=== PATIENT | female | born 1945 | race Asian ===

== ENCOUNTER 2017-09-06 18:36 | Emergency (ER) | payer MEDICARE ==
[~2017-09-06] VITALS: Ht 154.9 cm; Wt 48.1 kg
[2017-09-06 18:38] VITALS: BP 214/92
[2017-09-06] MEDS ORDERED: PHENYLEPHRINE NASAL 1%, 30ML DROPS NAS ONE (19:00)
[2017-09-06] MEDS ORDERED: SILVER NITRATE STICK TP ONE ×2 (19:00→19:05)
[2017-09-06] MEDS ORDERED: BACITRACIN OINT 500U/GM, 15 GM TP STA (19:00)
[2017-09-06] MEDS ORDERED: TRANEXAMIC ACID 100 MG/ML, 10ML TP STA (19:00)
[2017-09-06] MEDS ORDERED: BACITRACIN ZINC OINT 500U/GM, 0.9 GM ONE (19:03)
[2017-09-06] MEDS ORDERED: OXYMETAZOLINE NASAL SPRAY 0.05%, 15ML ONE (19:03)
[2017-09-06] MEDS ORDERED: TRANEXAMIC ACID 100 MG/ML, 10ML ONE (19:04)
== END 2017-09-06 20:29 | disposition home or self-care (01) ==
LOC: ED 20:05
DX: R04.0 Epistaxis (principal); I48.91 Unspecified atrial fibrillation
CPT/HCPCS: 30901; 99284

== ENCOUNTER 2017-09-07 10:39 | Emergency (ER) | payer MEDICARE ==
[~2017-09-07] VITALS: Ht 154.9 cm; Wt 47.0 kg
[2017-09-07 10:41] VITALS: BP 150/68
[2017-09-07] MEDS ORDERED: PHENYLEPHRINE NASAL 1%, 15ML SPRAY ONE (11:21)
[2017-09-07 11:29] LABS: BASOPHILS # (AUTO) 0.01 x10^3/uL (0-0.1); BASOPHILS % (AUTO) 0 % (0-1); EOSINOPHILS # (AUTO) 0.31 x10^3/uL (0-0.4); EOSINOPHILS % (AUTO) 4 % (1-7); LYMPHOCYTES # (AUTO) 0.99 x10^3/uL (1-3.4); LYMPHOCYTES % (AUTO) 12 % (22-44); MD NO; MEAN CORPUSCULAR HEMOGLOBIN 29.9 pg (27.0-34.8); MEAN CORPUSCULAR HGB CONC 33.6 g/dL (32.4-35.8); MONOCYTES # (AUTO) 0.64 x10^3/uL (0.2-0.8); MONOCYTES % (AUTO) 8 % (2-9); NEUTROPHILS # (AUTO) 6.11 x10^3/uL (1.8-6.8); NEUTROPHILS % (AUTO) 76 % (42-75); PLATELET COUNT 209 x10^3/uL (130-400); RED BLOOD COUNT 4.59 x10^6/uL (3.82-5.3); RED CELL DISTRIBUTION WIDTH 12.7 % (9.6-15.2)
== END 2017-09-07 14:23 | disposition home or self-care (01) ==
LOC: ED 12:52
DX: R04.0 Epistaxis (principal); I48.91 Unspecified atrial fibrillation; I10 Essential (primary) hypertension
CPT/HCPCS: 30901; 36415; 85025; 99284

== ENCOUNTER 2020-06-06 09:30 | Outpatient (CLI) | payer MEDICARE ==
[2020-06-06] MEDS ORDERED: OMNIPAQUE 350 MG/ML, 100ML BOTTLE ONE (10:00)
== END 2020-06-06 23:59 | disposition home or self-care (01) ==
LOC: CFH 09:30
PROVIDERS: ATTEND Internal Medicine
DX: M47.816 Spondylosis without myelopathy or radiculopathy, lumbar region (principal); N28.1 Cyst of kidney, acquired; K40.30 Unilateral inguinal hernia, with obstruction, without gangrene, not specified as recurrent; R63.4 Abnormal weight loss
CPT/HCPCS: 74177; Q9967